=== PATIENT | female | born 1970 | race Two or more races ===

== ENCOUNTER 2025-03-07 08:13 | Outpatient (CLI) | payer BC ==
[~2025-03-07] VITALS: Ht 160 cm; Wt 68.0 kg
[2025-03-07] MEDS: REGADENOSON 0.4 MG/5 ML SYRG IV ONE ×2 (10:14→10:24)
--- NOTE | 2025-03-07 12:40 | DVHSR ---
APPROVED REPORT Exam: Nuclear Stress Test BMI: 0 Stress Test Details HR Max Heart Rate (APMHR): 165.327471 bpm Target HR (85% APMHR): 140.737153 bpm BP ECG Stress ECG Conclusion lvef 64% normal perfusion scan apical wall dropout, artifact suspected NM EXAM: Myocardial Perfusion REST/STRESS Imaging Protocol: Rest Tc-99m/Stress Tc-99m 1 day Resting Data Rest SPECT myocardial perfusion imaging was performed in supine position 60 minutes following the int ravenous injection of 9.8 mCi of Tc-99m Sestamibi. Time of rest injection: 08:45 Date: 03/07/2025 Time of rest imagin:45 Date: 03/07/2025 Administration Route: IV Administration Site: Right Hand Pharmacologic Stress Pharmacologic stress test was performed by injecting Regadenoson 0.4 mg IV push followed by the intra venous injection of 27.2 mCi of Tc-99m Sestamibi. Time of stress injection: 10:25 Date: 03/07/2025 Time of stress imagin:25 Date: 03/07/2025 Administration Route: IV Administration Site: Right Hand Gated Stress SPECT was performed 60 minutes after stress injection. The images were gated to evaluate regional wall motion and calculate left ventricular ejection fracti on. Stress only was performed in the Supine position. Nuclear Conclusion Nuclear Findings: negative for ischemia lvef 64% normal perfusion scan apical wall dropout, artifact suspected
== END 2025-03-07 17:00 | disposition home or self-care (01) ==
LOC: XYW 08:13
PROVIDERS: ATTEND Specialist
DX: R00.0 Tachycardia, unspecified (principal); I35.0 Nonrheumatic aortic (valve) stenosis; I25.10 Atherosclerotic heart disease of native coronary artery without angina pectoris; E78.5 Hyperlipidemia, unspecified
CPT/HCPCS: 78452; 93017; A9500; J2785